=== PATIENT | male | born 2000 | race Caucasian/White ===

== ENCOUNTER 2025-04-21 13:40 | Emergency (ER) | payer MEDICAID, SELFPAY ==
[2025-04-21 13:44] VITALS: BP 125/78; BMI 18.6
--- NOTE | 2025-04-21 15:05 | ED.GENMED ---
History of Present Illness
General
Chief Complaint: Foreign Body Removal
Time Seen by Provider: 04/21/25 13:55
History of Present Illness
History of Present Illness:
24-year-old male presents with [employer] for evaluation of possible rectal foreign body. During intake to [facility] he had a body scan that suggested potential internal contraband. The patient denies any ingestions or insertions of
foreign bodies.
Review of Systems
Review of Systems
Allergies reviewed?: Yes
All Other Systems: ROS reviewed and negative except as documented in HPI and ROS
Phy Exam
Physical Exam
Physical Exam:
GEN: Disheveled malodorous
HEENT: Oral mucosa moist, no scleral icterus
Cardiac: Regular rate
Lung: No respiratory distress, no tachypnea
MSK: No gross deformity or injuries
Skin: Good color, no pallor or jaundice, no rashes
Neuro: AO x3, moves all extremities freely
Psych: Paranoid and anxious
Course
Orders/Labs/Results
Orders:
Orders
04/21/25 14:02
CT Abd/pel Without Iv Or Oral Urgent
Comment:
Reason For Exam: possible ingested FB
Vital Signs
Initial and Last Documented VS:
Initial Vital Signs
Temp Pulse Resp BP Pulse Ox
98.2 F 87 16 125/78 100
04/21/25 13:44 04/21/25 13:44 04/21/25 13:44 04/21/25 13:44 04/21/25 13:44
Last Documented Vital Signs
Temp Pulse Resp BP Pulse Ox
98.2 F 87 16 125/78 100
04/21/25 13:44 04/21/25 13:44 04/21/25 13:44 04/21/25 13:44 04/21/25 15:07
MDM/Problems Addressed
MDM/Problems Addressed:
Patient refused rectal exam. He was amenable to CT which shows no obvious radiopaque foreign bodies. Medically stable for incarceration
*Pulse Oximetry
SaO2: 100
Oxygen Mode of Delivery: Room air
Patient hypoxic: no
*Critical Care Note
Total Time (30-74mins, 75-104mins- exclusive of procedures): Not Applicable
ED Attending Note
-
Portions of this chart may have been created with voice recognition software.� Occasional wrong word or��sound alike� substitutions may have occurred due to the inherent limitations of voice recognition software.
Discharge Plan
Departure
Patient Disposition: Home (Routine Discharge)
Date of Disposition: 04/21/25
Time of Disposition: 15:06
Patient with high blood pressure during this ER visit?: No
Discharge Problem:
Methamphetamine abuse
Prescriptions:
No Action
No Current Medications
0
Referrals:
NONE,* [Family Provider, Internal Medicine]
Activity Restrictions/Additional Instructions:
Remigio Cristobal is medically stable for incarceration
There is no rectal foreign body identified on CT scan
Interventions
Interventions:
*Risk Screen - Suicide Last Done: 04/21/25 13:44
*Neglect/Abuse Screening Last Done: 04/21/25 13:44
*ED- Fall Risk Assessment Last Done: 04/21/25 13:44
*Nursing Disposition Last Done: 04/21/25 15:19
Discharge Date and Time
Discharge Date/Time: 04/21/25 15:20
Print Language: TAJIK
== END 2025-04-21 15:20 ==
LOC: EMR 13:40
PROVIDERS: EMERGENCY PHYSICIAN Emergency Medicine
DX: F15.10 Other stimulant abuse, uncomplicated (principal); Z65.3 Problems related to other legal circumstances
CPT/HCPCS: 99284; 74176